=== PATIENT | female | born 1995 | race Caucasian/White ===

== ENCOUNTER 2020-02-18 15:17 | Emergency (ER) | payer OTHER ==
--- OUTSIDE RECORDS SUMMARY | 2020-02-18 16:50 | XMS REPORT | Continuity of Care Document ---
:1995 Author Organization [facility] t Address [address] [place] [address] Dr. [address]. [address] [place] [address] Care Team Providers Name Role Phone Ozzie RODGERS, Sandra Attending Clinician Problems This patient has no known problems. Allergies, Adverse Reactions, Alerts This patient has no known allergies or adverse reactions. Medications This patient has no known medications. Procedures This patient has no known procedures. Encounters Start End Encounter Admission Attending Care Care Encounter Source Date/Time Date/Time Type Type Clinicians Facility Department ID 2019-03-08 2019-03-08 Emergency Ozzie [facility] [id number] 21:56:16 23:13:00 Gerald Thomas [id number] Josue [id number] [place] [id number] Results This patient has no known results.
[2020-02-18 19:02] LABS: Absolute Lymphocytes (CBC) 1.3 K/uL (0.7-4.9); Basophils % 0.6 % (0-1.3); Hematocrit 41.1 % (36.0-45.0); Lymphocytes % 23.1 % (15.3-44.8); MPV 8.6 fL (7.6-11.3)
[2020-02-18 19:06] LABS: Urine Amorphous Sediment 2+ /HPF (NONE SEEN); Urine Bacteria <20 /HPF (<20); Urine Culture Reflex Order NOT NEEDED; Urine Mucus 1+ /HPF (NONE SEEN); Urine RBC <5 /HPF (NONE SEEN)
[2020-02-18 19:07] LABS: Urine Blood NEGATIVE (NEG); Urine Glucose NEGATIVE (NEG); Urine Protein NEGATIVE (NEG); Urine Specific Gravity 1.025 (1.005-1.030); Urine pH 6.5 (5.0-7.0)
[2020-02-18 19:30] LABS: BUN Blood Urea Nitrogen 13 mg/dL (7-18); Bicarbonate 26 mmol/L (21-32); Glucose Level 78 mg/dL (74-106); HCG, Quantitative 115336 mIU/mL (1-3); Potassium 3.3 mmol/L (3.5-5.1); Sodium Level 138 mmol/L (136-145)
--- NOTE | 2020-02-18 19:42 | ER ---
Nurse's Notes [facility] Name: Korin Albright Age: 24 yrs Sex: Female : 1995 Arrival Date: 02/18/2020 Time: 15:24 Bed 19 Private MD: Diagnosis: Threatened Presentation: 02/17 15:36 Chief complaint: Patient states: 9 weeks . Had episode of vaginal bleeding ll1 Tuesday and Tuesday. Called OB today, sent for eval. Coronavirus screen: Proceed with normal triage. Patient denies a cough. Patient denies shortness of breath or difficulty breathing. Patient denies measured and/or subjective temperature greater than 100.4F prior to today's visit. Patient denies travel on a cruise ship or to a country the [facility] currently lists as an affected area. Patient denies contact with known and/or suspected case of COVID-19. Ebola Screen: Patient denies travel to an Ebola-affected area in the 21 days before illness onset. Initial Sepsis Screen: Does the patient meet any 2 criteria? No. Patient's initial sepsis screen is negative. Risk Assessment: Do you want to hurt yourself or someone else? Patient reports no desire to harm self or others. Onset of symptoms was February 16, 2020. 15:36 Method Of Arrival: Ambulatory ll1 15:36 Acuity: ROX 3 ll1 19:37 Initial Sepsis Screen: Does the patient have a suspected source of infection? No. ah Patient's initial sepsis screen is negative. 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 - Social history:: Smoking status: Patient denies any tobacco usage or history of. Patient/guardian denies using alcohol, street drugs, tobacco products. Screenin:36 Abuse screen: Denies threats or abuse. Nutritional screening: No deficits noted. Tuberculosis screening: No symptoms or risk factors identified. Fall Risk None identified. Assessment: 18:00 Obstetrical Assessment: General assessment: awake and alert, skin warm and dry, respirations even and unlabored, Patient reports abdominal cramping, spotting x2 days. General: Appears in no apparent distress. Behavior is calm, cooperative, appropriate for age. Pain: Denies pain. Neuro: Level of Consciousness is awake, alert, obeys commands, Oriented to person, place, time, situation, Appropriate for age. Cardiovascular: Capillary refill < 3 seconds Patient's skin is warm and dry. Respiratory: Airway is patent Respiratory effort is even, unlabored. GI: Reports nausea. : Reports cramping, lower quadrant(s) vaginal bleeding that is. Derm: Skin is intact, is healthy with good turgor. 19:00 Reassessment: Patient and/or family updated on plan of care and expected duration. Pain ah level reassessed. Patient is alert, oriented x 3, equal unlabored respirations, skin warm/dry/pink. Vital Signs: 15:36 BP 134 / 88; Pulse 89; Resp 17; Temp 98.5; Pulse Ox 98% ; Pain 3/10; ll1 19:00 BP 110 / 56; Pulse 55; Resp 18; Pulse Ox 100% ; ah 19:30 BP 127 / 78; Pulse 59; Resp 17; Pulse Ox 97% ; ah ED Course: 15:24 Patient arrived in ED. mr 15:37 Triage completed. ll1 15:37 Arm band placed on Patient notified of wait time. ll1 17:56 James Chapin NP is PHCP. pm1 17:56 Edgar Gonzalez MD is Attending Physician. pm1 18:28 Elaine Dela Cruz, RN is Primary Nurse. ah 18:30 Inserted saline lock: 20 gauge in left antecubital area, using aseptic technique. ah 19:34 US Transvaginal Ob In Process Unspecified. EDMS 19:37 Patient has correct armband on for positive identification. Placed in gown. Bed in low ah position. Call light in reach. Side rails up X 1. Pulse ox on. NIBP on. 19:55 No provider procedures requiring assistance completed. ah 20:20 IV discontinued, intact, bleeding controlled, No redness/swelling at site. Pressure ah dressing applied. Administered Medications: No medications were administered Outcome: 19:41 Discharge ordered by . pm1 20:19 Discharged to home ambulatory. 20:19 Condition: good 20:19 Instructed on discharge instructions, follow up and referral plans. Demonstrated understanding of instructions, follow-up care. 20:20 Patient left the ED. Signatures: Dispatcher [employer] eLela Houston Patrick, MAGALY PUBLIC ACCOUNTANT pm1 Elaine Dela Cruz RN RN Kiarra Miles RN RN ll1
--- NOTE | 2020-02-18 19:42 | EDPHYS ---
Physician Documentation [facility] Name: Korin Albright Age: 24 yrs Sex: Female : 1995 Arrival Date: 02/18/2020 Time: 15:24 Bed 19 Private MD: ED Physician Edgar Gonzalez HPI: 02/17 18:05 This 24 yrs old Female presents to ER via Ambulatory with complaints of pm1 Vaginal Bleeding, + Preg <12wks. 18:05 The patient presents to the emergency department with vaginal bleeding, that is light. pm1 The estimated gestational age is 9 weeks. course: care: private OB physician. Associated signs and symptoms: Pertinent negatives: abdominal pain, chest pain, dysuria, fever, nausea, vomiting. Patient's OB is out of town. vaginal bleeding onset two days ago. Started light then spotting yesterday. No bleeding today. 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 - Social history:: Smoking status: Patient denies any tobacco usage or history of. Patient/guardian denies using alcohol, street drugs, tobacco products. ROS: 18:05 Constitutional: Negative for fever, chills, and weight loss, Eyes: Negative for injury, pm1 pain, redness, and discharge, ENT: Negative for injury, pain, and discharge, Neck: Negative for injury, pain, and swelling, Cardiovascular: Negative for chest pain, palpitations, and edema, Respiratory: Negative for shortness of breath, cough, wheezing, and pleuritic chest pain, Abdomen/GI: Negative for abdominal pain, nausea, vomiting, diarrhea, and constipation, Back: Negative for injury and pain. 18:05 MS/Extremity: Negative for injury and deformity, Skin: Negative for injury, rash, and discoloration, Neuro: Negative for headache, weakness, numbness, tingling, and seizure. 18:05 : Positive for vaginal bleeding, Negative for urinary symptoms. Exam: 18:05 Constitutional: This is a well developed, well nourished patient who is awake, alert, pm1 and in no acute distress. Head/Face: Normocephalic, atraumatic. 18:05 Skin: Warm, dry with normal turgor. Normal color with no rashes, no lesions, and no evidence of cellulitis. MS/ Extremity: Pulses equal, no cyanosis. Neurovascular intact. Full, normal range of motion. 18:05 Cardiovascular: Exam negative for acute changes, Rate: normal, Rhythm: regular, Pulses: no pulse deficits are appreciated. 18:05 Respiratory: Exam negative for acute changes, respiratory distress, shortness of breath. 18:05 Abdomen/GI: Inspection: abdomen appears normal, Palpation: abdomen is soft and non-tender, in all quadrants. 18:05 Back: pain, is absent. 18:05 Neuro: Exam negative for acute changes, Orientation: is normal, Mentation: is normal, Motor: is normal, moves all fours. Vital Signs: 15:36 BP 134 / 88; Pulse 89; Resp 17; Temp 98.5; Pulse Ox 98% ; Pain 3/10; ll1 19:00 BP 110 / 56; Pulse 55; Resp 18; Pulse Ox 100% ; ah 19:30 BP 127 / 78; Pulse 59; Resp 17; Pulse Ox 97% ; ah MDM: 17:57 Patient medically screened. sanjana 18:05 Refusal of service: The patient/guardian displays adequate decision making capability pm1 and despite a detailed discussion of alternatives, benefits, risks, and consequences refuses: pelvic examination. 19:40 Data reviewed: vital signs. Data interpreted: Pulse oximetry: on room air is 97 %. pm1 Interpretation: normal. Counseling: I had a detailed discussion with the patient and/or guardian regarding: the historical points, exam findings, and any diagnostic results supporting the discharge/admit diagnosis, lab results, radiology results, the need for outpatient follow up, to return to the emergency department if symptoms worsen or persist or if there are any questions or concerns that arise at home. 02/17 18:04 Order name: Quantitative Hcg; Complete Time: 19:40 pm1 02/17 18:04 Order name: Abo/rh Typing; Complete Time: 19:40 pm1 02/17 18:04 Order name: Basic Metabolic Panel; Complete Time: 19:40 pm1 02/17 18:04 Order name: CBC with Diff; Complete Time: 19:17 pm1 02/17 18:04 Order name: Urine Microscopic Only; Complete Time: 19:10 pm1 02/17 18:43 Order name: Urine Dipstick--Ancillary (enter results); Complete Time: 19:10 em1 02/17 18:04 Order name: Urine Test (obtain specimen); Complete Time: 18:40 pm1 02/17 18:04 Order name: IV Saline Lock; Complete Time: 18:52 pm1 02/17 18:04 Order name: Labs collected and sent; Complete Time: 18:52 pm1 02/17 18:04 Order name: NPO; Complete Time: 18:52 pm1 02/17 18:04 Order name: Urine Dipstick-Ancillary (obtain specimen); Complete Time: 18:41 pm1 02/17 18:04 Order name: US Transvaginal Ob; Complete Time: 20:07 pm1 02/17 18:43 Order name: Urine --Ancillary (enter results); Complete Time: 19:10 em1 Administered Medications: No medications were administered Disposition: 02/18 05:51 Co-signature as Attending Physician, Edgar Gonzalez MD I agree with the assessment and sanjana plan of care. Disposition: 02/18/20 19:41 Discharged to Home. Impression: Threatened . - Condition is Stable. - Discharge Instructions: Threatened Miscarriage, Pelvic Rest. - Medication Reconciliation Form, Thank You Letter, Antibiotic Education, Prescription Opioid Use form. - Follow up: Emergency Department; When: As needed; Reason: Worsening of condition. Follow up: Private Physician; When: 2 - 3 days; Reason: Recheck today's complaints, Continuance of care, Re-evaluation by your physician. - Problem is new. - Symptoms have improved. Signatures: Dispatcher [employer] [facility] Edgar Gonzalez MD MD cha Marinas, Patrick SINTERING PLANT SUPERVISOR SINTERING PLANT SUPERVISOR pm1 Elaine Dela Cruz, RN RN Kiarra Miles RN RN ll1 Corrections: (The following items were deleted from the chart) 02/17 20:20 19:41 02/18/2020 19:41 Discharged to Home. Impression: Threatened . Condition ah is Stable. Forms are Medication Reconciliation Form, Thank You Letter, Antibiotic Education, Prescription Opioid Use. Follow up: Emergency Department; When: As needed; Reason: Worsening of condition. Follow up: Private Physician; When: 2 - 3 days; Reason: Recheck today's complaints, Continuance of care, Re-evaluation by your physician. Problem is new. Symptoms have improved. pm1
--- NOTE | 2020-02-18 19:51 | RAD REPORT ---
EXAM DESCRIPTION: US - Transvaginal OB - 02/18/2020 7:34 pm CLINICAL HISTORY: VAGINAL BLEEDING Pelvic pain, bleeding COMPARISON: OB Complete dated 12/22/2017 FINDINGS: A single gestational sac is seen within the uterus. The shape of the sac is within normal limits for gestational age. Within the sac is a single pole with crown-rump length of 2.5 cm, c orrelating to estimated gestational age of 8 weeks 6 days. Estimated date of delivery is 09/23/2020. Heart rate is 170 BPM. The placenta is not yet developed due to early gestational age. The maternal adnexa are within normal limits. Both ovaries were obscured by bowel gas. IMPRESSION: Single live early intrauterine gestation with estimated gestational age of 8 weeks 6 day s, LYNN 09/23/2020. Both ovaries were obscured by bowel gas.
[2020-02-18 21:28] VITALS: TEMP 98.5
[2020-02-18 21:31] VITALS: BP 127/78; O2SAT 97
== END 2020-02-18 20:20 | disposition home or self-care (01) ==
LOC: ER 15:17
DX: O20.0 Threatened abortion (principal); Z3A.09 9 weeks gestation of pregnancy
CPT/HCPCS: 36415; 76817; 80048; 81003; 81015; 81025; 84702; 85025; 86900; 86901; 99283